=== PATIENT | male | born 1990 | race Two or more races ===

== ENCOUNTER 2018-05-24 08:00 | Emergency (ER) | payer SELFPAY ==
[~2018-05-24] VITALS: Ht 162.6 cm; Wt 72.6 kg
[2018-05-24] MEDS ORDERED: SODIUM CHLORIDE 0.9% 1,000 ML IVB ONE (08:19)
[2018-05-24 08:39] LABS: Basophils # (auto) 0 uL; Basophils % (auto) 0.3 % (0.0-2.0); Eosinophils # (auto) 0 uL; Eosinophils % (auto) 0.1 % (0.0-7.0); Hematocrit 49.1 % (41.0-53.0); Hemoglobin 16.6 g/dL (13.5-17.5); Lymphocytes # (auto) 1.8 uL; Mean Corpuscular Hemoglobin 31.4 pg (28.0-32.0); Mean Corpuscular Hgb Conc. 33.9 g/dL (32.0-36.0); Mean Corpuscular Volume 92.6 fL (80.0-100.0); Monocytes # (auto) 0.6 uL; Monocytes % (auto) 3.4 % (0.0-12.0); Neutrophils # (auto) 14.1 uL; Neutrophils % (auto) 85.2 % (37.0-80.0); Platelet Count (auto) 279 10^3/uL (140-450); Red Cell Distribution Width 13.4 % (11.8-14.3); White Blood Cell 16.5 10^3/uL (4.4-10.8)
[2018-05-24] MEDS ORDERED: THIAMINE 100mg/ml INJ (200mg/2ml VIAL) IV ONE (08:45)
[2018-05-24] MEDS ORDERED: chlordiazePOXIDE HCL 5 MG CAP PO ONE (08:45)
[2018-05-24 09:04] LABS: Alanine Aminotransferase 33 U/L (16-61); Albumin 5.3 g/dL (3.4-5.0); Anion Gap 15 (5-15); Aspartate Aminotransferase 24 U/L (15-37); BUN/Creatinine Ratio 8.9; Blood Urea Nitrogen 10 mg/dL (7-18); Calcium 9.7 mg/dL (8.5-10.1); Carbon Dioxide 22 mmol/L (21-32); Chloride 100 mmol/L (98-107); GFR African American 102 mL/min; GFR Non-African American 84 mL/min; Glucose 152 mg/dL (74-106); Potassium 3.9 mmol/L (3.5-5.1); Sodium 137 mmol/L (136-145)
[2018-05-24 09:09] LABS: Alkaline Phosphatase 109 U/L (45-117); Bilirubin, Total 0.5 mg/dL (0.2-1.0)
[2018-05-24] MEDS ORDERED: LORazepam 2MG/ML-1ML VIAL ONE (09:19)
[2018-05-24 09:24] LABS: Urine Bacteria NONE SEEN /hpf (None Seen); Urine Blood Negative /uL (Negative); Urine Mucus FEW (None Seen); Urine WBC <1 /hpf (0 - 3)
[2018-05-24] MEDS ORDERED: LORazepam 2MG/ML-1ML VIAL IV ONE (09:30)
[2018-05-24 09:45] LABS: Amphetamine Screen, Urine NEGATIVE (NEGATIVE); Barbiturate Scree,Urine NEGATIVE (NEGATIVE); Benzodiazephine Screen, Urine NEGATIVE (NEGATIVE); Cannabinoid Screen, Urine POSITIVE (NEGATIVE); Cocaine Screen, Urine NEGATIVE (NEGATIVE); Opiate Scree,Urine NEGATIVE (NEGATIVE); Phencyclidine Screen, Urine NEGATIVE (NEGATIVE)
[2018-05-24 10:29] LABS: Amylase 64 U/L (25-115); Lipase 117 U/L (73-393)
[2018-05-24 11:10] VITALS: BP 134/92
[2018-05-24] MEDS ORDERED: cefTRIAXone 1GM/50ML D5W 50 ML IV ONE (11:30)
== END 2018-05-24 11:48 | disposition home or self-care (01) ==
LOC: ER 08:00
DX: E86.0 Dehydration (principal); J40 Bronchitis, not specified as acute or chronic; F10.120 Alcohol abuse with intoxication, uncomplicated; F17.210 Nicotine dependence, cigarettes, uncomplicated; F12.10 Cannabis abuse, uncomplicated
CPT/HCPCS: 36415; 71046; 80053; 80307; 80320; 81001; 82150; 83690; 84484; 85025; 93005; 94761; 96361; 96374; 96375; 99285; J0696; J2060; J3411; J7030

== ENCOUNTER 2018-07-05 09:10 | Emergency (ER) | payer SELFPAY ==
[~2018-07-05] VITALS: Ht 162.6 cm; Wt 68.0 kg
[2018-07-05] MEDS ORDERED: SODIUM CHLORIDE 0.9% 1,000 ML IV ONE (09:30)
[2018-07-05 10:28] LABS: Basophils # (auto) 0.1 uL; Basophils % (auto) 0.9 % (0.0-2.0); Eosinophils # (auto) 0 uL; Hematocrit 50.6 % (41.0-53.0); Hemoglobin 16.9 g/dL (13.5-17.5); Lymphocytes # (auto) 2.1 uL; Lymphocytes % (auto) 13.5 % (10.0-50.0); Mean Corpuscular Hemoglobin 30.5 pg (28.0-32.0); Mean Corpuscular Hgb Conc. 33.4 g/dL (32.0-36.0); Mean Corpuscular Volume 91.4 fL (80.0-100.0); Monocytes # (auto) 0.7 uL; Monocytes % (auto) 4.7 % (0.0-12.0); Neutrophils # (auto) 12.4 uL; Neutrophils % (auto) 80.9 % (37.0-80.0); Platelet Count (auto) 289 10^3/uL (140-450); Red Blood Cells 5.54 10^6/uL (4.5-5.90); Red Cell Distribution Width 13.3 % (11.8-14.3); White Blood Cell 15.3 10^3/uL (4.4-10.8)
[2018-07-05 10:34] LABS: Alanine Aminotransferase 27 U/L (16-61); Albumin 5.2 g/dL (3.4-5.0); Anion Gap 12 (5-15); Aspartate Aminotransferase 16 U/L (15-37); BUN/Creatinine Ratio 12.9; Blood Alcohol < 3.0 mg/dL (0-5); Blood Urea Nitrogen 13 mg/dL (7-18); Calcium 9.6 mg/dL (8.5-10.1); Carbon Dioxide 24 mmol/L (21-32); Chloride 99 mmol/L (98-107); GFR African American 115 mL/min; GFR Non-African American 95 mL/min; Glucose 119 mg/dL (74-106); Potassium 3.8 mmol/L (3.5-5.1); Sodium 135 mmol/L (136-145)
[2018-07-05 10:38] LABS: Alkaline Phosphatase 104 U/L (45-117); Total Protein 9.3 g/dL (6.4-8.2)
[2018-07-05] MEDS ORDERED: LORazepam 2MG/ML-1ML VIAL IV ONE (10:45)
[2018-07-05 11:43] VITALS: BP 127/72
== END 2018-07-05 12:11 | disposition home or self-care (01) ==
LOC: ER 09:10
DX: F10.230 Alcohol dependence with withdrawal, uncomplicated (principal); F17.210 Nicotine dependence, cigarettes, uncomplicated; F12.10 Cannabis abuse, uncomplicated; F15.10 Other stimulant abuse, uncomplicated; Y90.0 Blood alcohol level of less than 20 mg/100 ml
CPT/HCPCS: 36415; 71046; 80053; 80320; 84484; 85025; 93005; 96374; 99284; J2060; J7030

== ENCOUNTER 2018-11-22 10:00 | Emergency (ER) | payer SELFPAY ==
[~2018-11-22] VITALS: Ht 165.1 cm; Wt 81.6 kg
[2018-11-22 10:09] VITALS: BP 104/52
== END 2018-11-22 16:25 | disposition left against medical advice (07) ==
LOC: ER 10:05
DX: S61.213A Laceration without foreign body of left middle finger without damage to nail, initial encounter (principal); Z53.21 Procedure and treatment not carried out due to patient leaving prior to being seen by health care provider; X58.XXXA Exposure to other specified factors, initial encounter; Y93.89 Activity, other specified; Y99.8 Other external cause status; Y92.89 Other specified places as the place of occurrence of the external cause

== ENCOUNTER 2019-06-28 11:02 | Emergency (ER) | payer SELFPAY ==
[~2019-06-28] VITALS: Ht 160 cm; Wt 86.2 kg
[2019-06-28] MEDS ORDERED: SODIUM CHLORIDE 0.9% 1,000 ML IV ONE (11:28)
[2019-06-28] MEDS ORDERED: LORazepam 2MG/ML-1ML VIAL IV ONE (11:30)
[2019-06-28 11:44] VITALS: BP 116/70
[2019-06-28 11:56] LABS: Basophils # (auto) 0.1 uL; Basophils % (auto) 0.4 % (0.0-2.0); Eosinophils # (auto) 0 uL; Eosinophils % (auto) 0.1 % (0.0-7.0); Hematocrit 48.6 % (41.0-53.0); Lymphocytes # (auto) 1.9 uL; Lymphocytes % (auto) 11.5 % (10.0-50.0); Mean Corpuscular Hemoglobin 31.2 pg (28.0-32.0); Monocytes # (auto) 0.7 uL; Monocytes % (auto) 4.4 % (0.0-12.0); Neutrophils % (auto) 83.6 % (37.0-80.0); Nucleated Red Blood Cells % 0.3 %; Platelet Count (auto) 341 10^3/uL (140-450); Red Blood Cells 5.47 10^6/uL (4.5-5.90); Red Cell Distribution Width 13.4 % (11.8-14.3); White Blood Cell 16.7 10^3/uL (4.4-10.8)
[2019-06-28 12:12] LABS: Albumin 4.9 g/dL (3.4-5.0); Calcium 9.6 mg/dL (8.5-10.1); Potassium 3.9 mmol/L (3.5-5.1)
[2019-06-28 12:15] LABS: BUN/Creatinine Ratio 12.5; Bilirubin, Total 0.7 mg/dL (0.2-1.0); Total Protein 9.4 g/dL (6.4-8.2)
== END 2019-06-28 12:57 | disposition home or self-care (01) ==
LOC: ER 11:05
DX: F41.9 Anxiety disorder, unspecified (principal); F10.239 Alcohol dependence with withdrawal, unspecified
CPT/HCPCS: 36415; 80053; 85025; 93005; 96374; 99284; J2060; J7030

== ENCOUNTER 2019-10-01 06:52 | Emergency (ER) | payer SELFPAY ==
[~2019-10-01] VITALS: Ht 160 cm; Wt 77.1 kg
[2019-10-01] MEDS ORDERED: MVI in SODIUM CHLORIDE 0.9% 1,010 ML IV ONE (07:32)
[2019-10-01] MEDS ORDERED: THIAMINE 100mg/ml INJ (200mg/2ml VIAL) IV ONE (07:45)
[2019-10-01] MEDS ORDERED: SODIUM CHLORIDE 0.9% 1,000 ML IV ONE (07:45)
[2019-10-01] MEDS ORDERED: SODIUM CHLORIDE 0.9% 1,000 ML IVB ONE (08:33)
[2019-10-01] MEDS ORDERED: LORazepam 2MG/ML-1ML VIAL IV ONE (08:45)
[2019-10-01] MEDS ORDERED: FOLIC ACID 1 MG, MULTIPLE VITAMIN 10 ML, MAGNESIUM SULF SDV 50% 8 MEQ, THIAMINE INJ 100... INJ STA ×5 (08:56)
[2019-10-01 08:58] LABS: Basophils # (auto) 0.1 uL; Basophils % (auto) 0.3 % (0.0-2.0); Eosinophils # (auto) 0 uL; Eosinophils % (auto) 0.1 % (0.0-7.0); Hematocrit 47.9 % (41.0-53.0); Hemoglobin 16.4 g/dL (13.5-17.5); Lymphocytes # (auto) 2.1 uL; Lymphocytes % (auto) 10.6 % (10.0-50.0); Mean Corpuscular Hemoglobin 31.3 pg (28.0-32.0); Mean Corpuscular Hgb Conc. 34.1 g/dL (32.0-36.0); Mean Corpuscular Volume 91.8 fL (80.0-100.0); Monocytes # (auto) 0.6 uL; Monocytes % (auto) 3.1 % (0.0-12.0); Neutrophils # (auto) 16.7 uL; Neutrophils % (auto) 85.9 % (37.0-80.0); Nucleated Red Blood Cells % 0.1 %; Platelet Count (auto) 241 10^3/uL (140-450); Red Blood Cells 5.22 10^6/uL (4.5-5.90); White Blood Cell 19.4 10^3/uL (4.4-10.8)
[2019-10-01 09:19] LABS: Albumin 4.6 g/dL (3.4-5.0); Anion Gap 7 (5-15); Blood Urea Nitrogen 8 mg/dL (7-18); Calcium 8.7 mg/dL (8.5-10.1); Carbon Dioxide 25 mmol/L (21-32); Chloride 104 mmol/L (98-107); Glucose 93 mg/dL (74-106); Magnesium 2.5 mg/dL (1.6-2.6); Sodium 136 mmol/L (136-145)
[2019-10-01 09:25] LABS: Alanine Aminotransferase 20 U/L (16-61); Alkaline Phosphatase 82 U/L (45-117); Aspartate Aminotransferase 17 U/L (15-37); BUN/Creatinine Ratio 9.5; Bilirubin, Total 0.5 mg/dL (0.2-1.0); GFR African American 141 mL/min; GFR Non-African American 116 mL/min; Total Protein 8.8 g/dL (6.4-8.2)
[2019-10-01 10:51] LABS: Urine Bacteria NONE SEEN /hpf (None Seen); Urine Blood Negative /uL (Negative); Urine Specific Gravity 1.004 (1.001-1.035); Urine WBC 1 /hpf (0 - 3)
[2019-10-01] MEDS ORDERED: ONDANSETRON HCL 4 MG/2 ML VIAL IV ONE (11:45)
[2019-10-01 12:04] LABS: Amphetamine Screen, Urine NEGATIVE (NEGATIVE); Barbiturate Scree,Urine NEGATIVE (NEGATIVE); Benzodiazephine Screen, Urine NEGATIVE (NEGATIVE); Cannabinoid Screen, Urine POSITIVE (NEGATIVE); Cocaine Screen, Urine NEGATIVE (NEGATIVE); Phencyclidine Screen, Urine NEGATIVE (NEGATIVE)
[2019-10-01 12:13] LABS: Opiate Scree,Urine NEGATIVE (NEGATIVE)
[2019-10-01 12:55] VITALS: BP 121/69
== END 2019-10-01 13:05 | disposition home or self-care (01) ==
LOC: ER 06:52
DX: F10.230 Alcohol dependence with withdrawal, uncomplicated (principal); F12.10 Cannabis abuse, uncomplicated; F15.10 Other stimulant abuse, uncomplicated; F17.210 Nicotine dependence, cigarettes, uncomplicated
CPT/HCPCS: 36415; 71046; 80053; 80307; 81001; 83735; 84443; 84484; 85025; 96365; 96366; 96375; 99284; J2060; J2405; J3411; J3475; J7030

== ENCOUNTER 2019-10-06 00:43 | Emergency (ER) | payer SELFPAY ==
[~2019-10-06] VITALS: Ht 160 cm; Wt 66.9 kg
[2019-10-06 01:10] VITALS: BP 139/89
[2019-10-06] MEDS ORDERED: traMADol HCL 50 MG TAB PO ONE (02:00)
[2019-10-06] MEDS ORDERED: traMADol HCL 50 MG TAB ONE (02:08)
== END 2019-10-06 02:01 | disposition home or self-care (01) ==
LOC: ER 00:44
DX: K04.7 Periapical abscess without sinus (principal); F17.210 Nicotine dependence, cigarettes, uncomplicated; F12.10 Cannabis abuse, uncomplicated; F15.10 Other stimulant abuse, uncomplicated

== ENCOUNTER 2020-07-30 07:06 | Emergency (ER) | payer MEDICAID, OTHER ==
[~2020-07-30] VITALS: Ht 154.9 cm; Wt 63.5 kg
[2020-07-30 07:08] VITALS: BP 155/113
[2020-07-30 07:38] LABS: Basophils # (auto) 0.1 10 ^3/uL (0-0.2); Basophils % (auto) 0.6 % (0.0-2.0); Eosinophils # (auto) 0 10 ^3/uL (0-0.8); Eosinophils % (auto) 0.2 % (0.0-7.0); Hematocrit 49.7 % (41.0-53.0); Hemoglobin 17.5 g/dL (13.5-17.5); Lymphocytes # (auto) 3.5 10 ^3/uL (0.4-5.4); Lymphocytes % (auto) 22.3 % (10.0-50.0); Mean Corpuscular Hemoglobin 32.2 pg (28.0-32.0); Mean Corpuscular Hgb Conc. 35.1 g/dL (32.0-36.0); Mean Corpuscular Volume 91.7 fL (80.0-100.0); Monocytes # (auto) 0.8 10 ^3/uL (0-1.3); Monocytes % (auto) 5.1 % (0.0-12.0); Neutrophils # (auto) 11.3 10 ^3/uL (1.6-8.6); Neutrophils % (auto) 71.8 % (37.0-80.0); Nucleated Red Blood Cells % 0.2 %; Platelet Count (auto) 204 10^3/uL (140-450); Red Blood Cells 5.42 10^6/uL (4.5-5.90); Red Cell Distribution Width 13.2 % (11.8-14.3); White Blood Cell 15.8 10^3/uL (4.4-10.8)
[2020-07-30 08:06] LABS: INR 1.02 (0.9-1.15); Partial Thromboplastin Time 23.3 sec (23.0-31.2)
[2020-07-30 08:23] LABS: Lactic Acid w/Reflex 8.6 mmol/L (0.4-2.0)
[2020-07-30 09:16] LABS: Albumin 4.9 g/dL (3.4-5.0); Anion Gap 19 (5-15); Blood Urea Nitrogen 15 mg/dL (7-18); Calcium 9.1 mg/dL (8.5-10.1); Carbon Dioxide 18 mmol/L (21-32); Chloride 96 mmol/L (98-107); Glucose 159 mg/dL (74-106); Magnesium 2.5 mg/dL (1.6-2.6); Potassium 3.2 mmol/L (3.5-5.1); Sodium 133 mmol/L (136-145)
[2020-07-30 09:18] LABS: BUN/Creatinine Ratio 12.3; GFR African American 91 mL/min; GFR Non-African American 75 mL/min
[2020-07-30 09:23] LABS: Alanine Aminotransferase 27 U/L (16-61); Alkaline Phosphatase 89 U/L (45-117); Aspartate Aminotransferase 19 U/L (15-37); Bilirubin, Total 1.1 mg/dL (0.2-1.0); Total Protein 9.4 g/dL (6.4-8.2)
== END 2020-07-30 08:05 | disposition left against medical advice (07) ==
LOC: ER 07:06
DX: R53.1 Weakness (principal); R06.02 Shortness of breath; Z53.21 Procedure and treatment not carried out due to patient leaving prior to being seen by health care provider
CPT/HCPCS: 36415; 71045; 80053; 83605; 83735; 83880; 84484; 85025; 85610; 85730; 87040

== ENCOUNTER 2020-11-24 22:15 | Emergency (ER) | payer MEDICAID ==
[~2020-11-24] VITALS: Ht 157.5 cm; Wt 77.1 kg
[2020-11-24 22:21] VITALS: BP 115/63
== END 2020-11-25 03:10 | disposition home or self-care (01) ==
LOC: ER 22:15
DX: L02.31 Cutaneous abscess of buttock (principal); F17.210 Nicotine dependence, cigarettes, uncomplicated; F12.10 Cannabis abuse, uncomplicated; F15.10 Other stimulant abuse, uncomplicated